=== PATIENT | female | born 1975 | race Hispanic/Latino ===

== ENCOUNTER 2024-01-19 15:15 | Outpatient (CLI) | payer OTHER | END 2024-01-19 15:16 | disposition home or self-care (01) | LOC: BICRAD 15:15 | PROVIDERS: ATTEND Nurse Practitioner Family | DX: M79.651 Pain in right thigh (principal); M76.01 Gluteal tendinitis, right hip; M65.851 Other synovitis and tenosynovitis, right thigh ==